=== PATIENT | female | born 1960 | race Caucasian/White ===

== ENCOUNTER 2018-02-16 05:24 | Inpatient (IN) | payer BC ==
[2018-02-16] VITALS (17 sets, daily range): BP systolic 103–169; BP diastolic 57–99
[~2018-02-16] VITALS: Ht 172.7 cm; Wt 108.0 kg
[~2018-02-16 05:24] MED LIST: CETI-194 PO; LEVO175T2 PO; RISE35TA PO; ringers solution, lacted 1,000 ML IV SCH
[2018-02-16] MEDS ORDERED: cefazolin/dext.iso 2gm/100 ML IV ONE (05:30)
[2018-02-16] MEDS ORDERED: famotidine 20mg tablet PO ONE (05:30)
[2018-02-16] MEDS ORDERED: tranexamic acid inj. 1,000 MG in normal saline 100ml IV soln 90 ML IV ONE ×4 (05:30)
[2018-02-16] MEDS ORDERED: LIDOcaine 1% (10mg/ml) 2ml vial ONE (05:55)
[2018-02-16 06:19] LABS: BASOPHILS % (AUTO) 0.7 % (0-1); EOSINOPHILS # (AUTO) 0.2 X10'3 (0-0.9); EOSINOPHILS % (AUTO) 2.6 % (0-6); LYMPHOCYTES # (AUTO) 1.6 X10'3 (1.1-4.8); LYMPHOCYTES % (AUTO) 23.1 % (21-51); MEAN CORPUSCULAR HEMOGLOBIN 27.9 PG (27.0-31.0); MEAN CORPUSCULAR HGB CONC 32.2 % (33.0-36.5); MEAN CORPUSCULAR VOLUME 86.9 FL (78-98); MEAN PLATELET VOLUME 7.5 FL (7.4-10.4); MONOCYTES # (AUTO) 0.4 X10'3 (0-0.9); MONOCYTES % (AUTO) 5.2 % (2-12); NEUTROPHILS # (AUTO) 4.9 X10'3 (1.8-7.7); NEUTROPHILS % (AUTO) 68.4 % (42-75); PRE OP HEMATOCRIT 36.1 % (35.0-45.0); PRE OP HEMOGLOBIN 11.6 g/dL (12.0-16.0); PRE OP PLATELET COUNT 395 X10'3 (140-440); RED BLOOD COUNT 4.16 X10'6 (4.20-5.60); RED CELL DISTRIBUTION WIDTH 14.8 % (11.5-14.5)
[2018-02-16 06:33] LABS: ALBUMIN/GLOBULIN RATIO 0.8 (1.1-1.5); ALKALINE PHOSPHATASE 147 IU/L (46-116); BLOOD UREA NITROGEN 15 MG/DL (7-18); BUN/CREATININE RATIO 16.9 (6.6-38.0); CALCIUM 8.5 MG/DL (8.5-10.1); CHLORIDE 105 MMOL/L (99-107); CREATININE 0.89 MG/DL (0.40-0.90); PRE OP ALT 25 U/L (30-65); PRE OP ANION GAP 10 (8-16); PRE OP AST 17 U/L (10-37); PRE OP BILIRUB, TOTAL 0.5 MG/DL (0.0-1.0); PRE OP GLUCOSE 109 MG/DL (70-104); PRE OP POTASSIUM 3.7 MMOL/L (3.4-5.1); PRE OP SODIUM 142 MMOL/L (135-145); TOTAL CARBON DIOXIDE 26.7 MMOL/L (24-32); TOTAL PROTEIN 6.6 G/DL (6.4-8.2); eGFR 65 ML/MIN
[2018-02-16] MEDS ORDERED: vancomycin 1,000mg inj ONE (06:44)
[2018-02-16] MEDS ORDERED: ketorolac trometh. 30mg/ml inj. ONE (06:44)
[2018-02-16] MEDS ORDERED: ROPIVAcaine 0.5% (5mg/ml) 30ml vial ONE ×2 (06:45→07:15)
[2018-02-16] MEDS ORDERED: sevoflurane 250ml liquid IH ONE (07:12)
[2018-02-16] MEDS ORDERED: ePHEDrine 50MG/ML INJ. ONE (07:12)
[2018-02-16] MEDS ORDERED: MIDAZolam 5mg/5ml vial ONE (07:15)
[2018-02-16] MEDS ORDERED: LIDOcaine 1%/PF 5ML 10 MG/ML VIAL ONE (07:15)
[2018-02-16] MEDS ORDERED: propofol inj 20 ML IV ONE (07:15)
[2018-02-16] MEDS ORDERED: fentaNYL/PF 50MCG/1 ML 2ML syringe ONE ×2 (07:15→07:52)
[2018-02-16] MEDS ORDERED: dexamethasone sod phosphate 4mg/ml inj. ONE (07:16)
[2018-02-16] MEDS ORDERED: ondansetron/PF 4mg/2ml inj ONE (07:51)
[2018-02-16] MEDS ORDERED: VANCOMYCIN INJ 1000 MG in NORMAL SALINE 250ml IV.SOLN IV ONE (08:04)
[2018-02-16] MEDS ORDERED: ringers solution, lacted 1,000 ML IV SCH (08:26)
[2018-02-16] MEDS ORDERED: ondansetron/PF 4mg/2ml inj IV PRN ×2 (08:30→09:35)
[2018-02-16] MEDS ORDERED: proCHLORperazine 10 MG/2 ml inj IV PRN (08:30)
[2018-02-16] MEDS ORDERED: morphine 4 MG/ML inj SYRINge IV PRN ×2 (08:30)
[2018-02-16] MEDS ORDERED: meperidine/PF 25mg/ml syringe IV PRN ×3 (08:30)
[2018-02-16] MEDS ORDERED: acetaminophen 325mg tablet PO PRN (09:35)
[2018-02-16] MEDS ORDERED: diphenhydrAMINE 25mg capsule PO PRN ×2 (09:35)
[2018-02-16] MEDS ORDERED: magnesium hydroxide 30ml (MOM) UD suspension PO PRN (09:35)
[2018-02-16] MEDS ORDERED: HYDROmorphone inj. 0.5 MG/0.5 ML DISP.SYRIN IV PRN (09:35)
[2018-02-16] MEDS ORDERED: tranexamic acid inj. 1,000 MG in normal saline 100ml IV soln 100 ML IV ONE (09:35)
[2018-02-16] MEDS ORDERED: oxyCODONE IR 5mg (immed. release) tablet PO PRN ×2 (09:35)
[2018-02-16] MEDS ORDERED: HYDROmorphone 1 mg/ml syringe IV PRN (09:35)
[2018-02-16] MEDS ORDERED: bisacodyl 10mg suppository rectal RC PRN (09:35)
[2018-02-16] MEDS ORDERED: ROPIVAcaine 0.5% (5mg/ml) 30ml vial IJ ONE (09:41)
[2018-02-16] MEDS ORDERED: ketorolac trometh. 30mg/ml inj. IM ONE (09:42)
[2018-02-16] MEDS: potassium cl 20mEq in 1/2 NS 1,000 ML IV SCH ×3 (12:22→22:57)
[2018-02-16] MEDS: gabapentin 300mg capsule PO SCH ×2 (14:38→20:28)
[2018-02-16] MEDS: acetaminophen 325mg tablet PO SCH ×2 (14:40→20:27)
[2018-02-16] MEDS: ketorolac tromethamine 15mg/ml inj. IV SCH ×2 (14:40→20:28)
[2018-02-16] MEDS: proparacaine 0.5% ophthalmic drops 15ml RIGHTEYE PRN ×2 (16:19→22:58)
[2018-02-16] MEDS: ceFAZolin 1GM/D5W- ADD-VANTAGE 50 ML IV SCH (16:19)
[2018-02-16] MEDS: polymyxin B sulf/tmp ophth drops 10ml RIGHTEYE SCH ×2 (17:37→20:27)
[2018-02-16] MEDS ORDERED: vancomycin/NS 1 GM ADD-VANTAGE 250 ML IV SCH (20:00)
[2018-02-16] MEDS ORDERED: sennosides 8.6mg tablet PO SCH (21:00)
[2018-02-17] MEDS: ceFAZolin 1GM/D5W- ADD-VANTAGE 50 ML IV SCH (00:24)
[2018-02-17] MEDS: acetaminophen 325mg tablet PO SCH ×2 (01:55→07:37)
[2018-02-17] MEDS: ketorolac tromethamine 15mg/ml inj. IV SCH ×2 (01:55→07:35)
[2018-02-17 02:00] VITALS: BP 91/64
[2018-02-17 05:26] LABS: BASOPHILS % (AUTO) 0.5 % (0-1); EOSINOPHILS # (AUTO) 0.1 X10'3 (0-0.9); EOSINOPHILS % (AUTO) 0.7 % (0-6); HEMATOCRIT 31.2 % (35.0-45.0); LYMPHOCYTES # (AUTO) 1.5 X10'3 (1.1-4.8); LYMPHOCYTES % (AUTO) 15.6 % (21-51); MEAN CORPUSCULAR HEMOGLOBIN 28.4 PG (27.0-31.0); MEAN CORPUSCULAR HGB CONC 32.2 % (33.0-36.5); MEAN CORPUSCULAR VOLUME 88.3 FL (78-98); MONOCYTES # (AUTO) 0.6 X10'3 (0-0.9); MONOCYTES % (AUTO) 5.7 % (2-12); NEUTROPHILS # (AUTO) 7.7 X10'3 (1.8-7.7); NEUTROPHILS % (AUTO) 77.5 % (42-75); PLATELET COUNT 310 X10'3 (140-440); RED BLOOD COUNT 3.54 X10'6 (4.20-5.60); RED CELL DISTRIBUTION WIDTH 15.2 % (11.5-14.5); WHITE BLOOD COUNT 9.9 X10'3 (4.5-11.0)
[2018-02-17 05:36] LABS: ANION GAP 9 (8-16); CHLORIDE 110 MMOL/L (99-107); POTASSIUM 4.2 MMOL/L (3.5-5.1); SODIUM 143 MMOL/L (135-145); TOTAL CARBON DIOXIDE 23.9 MMOL/L (24-32)
[2018-02-17 06:00] VITALS: BP 106/63
[2018-02-17] MEDS: gabapentin 300mg capsule PO SCH (07:36)
[2018-02-17] MEDS: polymyxin B sulf/tmp ophth drops 10ml RIGHTEYE SCH (07:37)
[2018-02-17] MEDS: potassium cl 20mEq in 1/2 NS 1,000 ML IV SCH (07:39)
[2018-02-17] MEDS ORDERED: cetirizine 10mg tablet PO SCH (08:00)
[2018-02-17] MEDS ORDERED: levoTHYROXINE 112mcg tablet PO SCH (08:00)
[2018-02-17] MEDS ORDERED: levoTHYROXINE 175mcg tablet PO SCH (08:00)
[2018-02-17] MEDS ORDERED: aspirin 325mg tablet PO SCH (08:30)
[2018-02-17 10:00] VITALS: BP 90/56
[2018-02-17] MEDS ORDERED: ASPI-1 PO (10:16)
[2018-02-17] MEDS ORDERED: celeCOXIB 100mg capsule PO SCH (20:00)
[2018-02-18] MEDS ORDERED: acetaminophen 325mg tablet PO PRN (09:35)
[2018-02-23] MEDS ORDERED: ACTONEL 35 MG PO SCH (08:00)
== END 2018-02-17 11:51 | disposition home or self-care (01) | DRG 483 ==
LOC: PAS IN 05:24 → EDSTATUS 07:30 → ORTHO 4S 10:25
PROVIDERS: ADMIT Orthopaedic Surgery; ATTEND Orthopaedic Surgery
PROC: 3E0T3BZ Introduction of Anesthetic Agent into Peripheral Nerves and Plexi, Percutaneous Approach (ICD-10-PCS; 2018-02-16)
PROC: 0RRK00Z Replacement of Left Shoulder Joint with Reverse Ball and Socket Synthetic Substitute, Open Approach (ICD-10-PCS; principal; 2018-02-16 07:12)
DX: S42.242A 4-part fracture of surgical neck of left humerus, initial encounter for closed fracture (principal); V80.919A Animal-rider injured in unspecified transport accident, initial encounter; Y93.52 Activity, horseback riding; Y92.838 Other recreation area as the place of occurrence of the external cause; M25.512 Pain in left shoulder
CPT/HCPCS: 36415; 71045; 80051; 80053; 85025; 93005; 97110; 97116; 97161; 97530; A4565; A7000; G0378; J0690; J1100; J1885; J2001; J2250; J2405; J2704; J2795; J3010; J3370; J3490; J7030; J7040; J7120